=== PATIENT | female | born 1975 | race Caucasian/White ===

== ENCOUNTER → 2025-08-03 13:15 | Outpatient (CLI) | payer OTHER, SELFPAY | PROVIDERS: Family Provider Family Medicine; PCP Family Medicine; Referring Provider Physical Medicine & Rehabilitation; Visit Provider Physical Medicine & Rehabilitation | DX: M54.2 Cervicalgia (principal); M25.511 Pain in right shoulder; R20.2 Paresthesia of skin | CPT/HCPCS: 95886; 95912 ==